=== PATIENT | male | born 1955 | race Caucasian/White ===

== ENCOUNTER 2023-01-23 07:48 | Outpatient (CLI) | payer OTHER, SELFPAY ==
[2023-01-23 10:29] LABS: Hemoglobin A1C* 5.8 % (0-5.6)
[2023-01-25 00:43] LABS: Zinc, Serum/Plasma 82.9 ug/dL (60.0-120.0)
== END 2023-01-23 07:49 | disposition home or self-care (01) ==
LOC: WOUND 07:51
PROVIDERS: Visit Provider Nurse Practitioner Family
DX: I89.0 Lymphedema, not elsewhere classified (principal); I87.2 Venous insufficiency (chronic) (peripheral); L97.222 Non-pressure chronic ulcer of left calf with fat layer exposed; I73.9 Peripheral vascular disease, unspecified; R73.03 Prediabetes; K90.9 Intestinal malabsorption, unspecified; Z79.01 Long term (current) use of anticoagulants
CPT/HCPCS: 11042; 11045; 36415; 82728; 83036; 84630; 87070; 87205; 99203

== ENCOUNTER 2023-01-30 13:25 | Outpatient (CLI) | payer OTHER, SELFPAY ==
--- NOTE | 2023-01-30 15:00 | CRLHL7_ITS ---
For Patients: As a result of the Century Cures Act, medical imaging exams and procedure reports are released immediately into your electronic medical record. You may view this report before your referring provider. If you have questions, please contact your health care provider. CLINICAL HISTORY: Left lower extremity nonhealing wounds. COMPARISON: None. TECHNIQUE: The lower extremity arteries were examined per exam specific protocol with varner-scale ultrasound, color-flow and Doppler spectral analysis. Peak systolic velocities (PSV), Doppler waveform quality and velocity ratios, if applicable, were documented at sites per exam specific protocol. FINDINGS: Right: ROLL WEIGHER: 66, triphasic. DFA: 51, triphasic. FA PROX: 80, triphasic. FA MID: 69, triphasic. FA DIST: 64, triphasic. POP A: 52, triphasic. LEANDRO A: 52, triphasic. BUFFET MANAGER: 75, triphasic. NISH: 66, biphasic. DPA: 40, biphasic. Left: ROLL WEIGHER: 77, triphasic. DFA: 39, triphasic. FA PROX: 58, triphasic. FA MID: 75, triphasic. FA DIST: 77, triphasic. POP A: 66, triphasic. LEANDRO A: 59, triphasic. BUFFET MANAGER: 76, triphasic. NISH: 67, triphasic. DPA: 37, biphasic. Multiphasic waveforms are seen throughout the bilateral lower extremity arterial systems. No evidence of hemodynamically significant stenoses or occlusions. Nonocclusive DVT seen within the left femoral and popliteal veins. This is a known finding, the patient is on anticoagulation. IMPRESSION : 1. Multiphasic waveforms throughout the bilateral lower extremity arterial systems. No evidence of hemodynamically significant stenoses or occlusions. 2. Left lower extremity DVT in the femoral and popliteal veins. This is a known finding (patient on anticoagulation). Dictated by Doug Mcwilliams MD @ 02/01/2023 7:56:40 PM (Electronically Signed)
== END 2023-01-30 13:26 | disposition home or self-care (01) ==
LOC: WOUND 13:25
PROVIDERS: Visit Provider Nurse Practitioner Family
DX: I87.2 Venous insufficiency (chronic) (peripheral) (principal); L97.222 Non-pressure chronic ulcer of left calf with fat layer exposed; R73.03 Prediabetes
CPT/HCPCS: 93926; 97597; 97598

== ENCOUNTER 2023-02-06 08:02 | Outpatient (CLI) | payer OTHER, SELFPAY | END 2023-02-06 08:03 | disposition home or self-care (01) | LOC: WOUND 08:02 | PROVIDERS: Visit Provider Family Medicine | DX: I87.2 Venous insufficiency (chronic) (peripheral) (principal); L97.222 Non-pressure chronic ulcer of left calf with fat layer exposed; Z79.01 Long term (current) use of anticoagulants; Z86.718 Personal history of other venous thrombosis and embolism | CPT/HCPCS: 11042 ==

== ENCOUNTER 2023-02-20 10:19 | Outpatient (CLI) | payer OTHER, SELFPAY | END 2023-02-20 10:20 | disposition home or self-care (01) | PROVIDERS: Visit Provider Nurse Practitioner Family | DX: I87.2 Venous insufficiency (chronic) (peripheral) (principal); L97.222 Non-pressure chronic ulcer of left calf with fat layer exposed; I73.9 Peripheral vascular disease, unspecified | CPT/HCPCS: 97597 ==

== ENCOUNTER 2023-02-27 08:05 | Outpatient (CLI) | payer OTHER, SELFPAY | END 2023-02-27 08:06 | disposition home or self-care (01) | LOC: WOUND 08:05 | PROVIDERS: Visit Provider Nurse Practitioner Family | DX: I87.312 Chronic venous hypertension (idiopathic) with ulcer of left lower extremity (principal); L97.222 Non-pressure chronic ulcer of left calf with fat layer exposed | CPT/HCPCS: 11042 ==

== ENCOUNTER 2023-03-06 08:54 | Outpatient (CLI) | payer OTHER, SELFPAY | END 2023-03-06 08:55 | disposition home or self-care (01) | LOC: WOUND 08:54 | PROVIDERS: Visit Provider Nurse Practitioner Family | DX: I87.312 Chronic venous hypertension (idiopathic) with ulcer of left lower extremity (principal); I87.2 Venous insufficiency (chronic) (peripheral); L97.222 Non-pressure chronic ulcer of left calf with fat layer exposed | CPT/HCPCS: 11042 ==

== ENCOUNTER 2023-03-20 08:50 | Outpatient (CLI) | payer OTHER, SELFPAY | END 2023-03-20 08:51 | disposition home or self-care (01) | LOC: WOUND 08:51 | PROVIDERS: Visit Provider Nurse Practitioner Family | DX: I87.312 Chronic venous hypertension (idiopathic) with ulcer of left lower extremity (principal); L97.222 Non-pressure chronic ulcer of left calf with fat layer exposed; R73.03 Prediabetes | CPT/HCPCS: 97597 ==

== ENCOUNTER 2023-04-03 08:45 | Outpatient (CLI) | payer OTHER, SELFPAY | END 2023-04-03 08:46 | disposition home or self-care (01) | LOC: WOUND 08:45 | PROVIDERS: Visit Provider Nurse Practitioner Family | DX: I87.312 Chronic venous hypertension (idiopathic) with ulcer of left lower extremity (principal); L97.228 Non-pressure chronic ulcer of left calf with other specified severity; I89.0 Lymphedema, not elsewhere classified; I73.9 Peripheral vascular disease, unspecified | CPT/HCPCS: G0463 ==